=== PATIENT | female | born 1995 | race Two or more races ===

== ENCOUNTER 2018-03-29 04:33 | Emergency (ER) | payer MEDICAID ==
[~2018-03-29] VITALS: Ht 162.6 cm; Wt 68.0 kg
[2018-03-29 05:56] VITALS: BP 117/70
[2018-03-29] MEDS ORDERED: ALPRAZolam 0.5 MG TAB PO ONE (07:00)
== END 2018-03-29 07:38 | disposition home or self-care (01) ==
LOC: ER 04:36
DX: F41.1 Generalized anxiety disorder (principal); Z76.0 Encounter for issue of repeat prescription